=== PATIENT | female | born 1980 ===

== ENCOUNTER 2024-06-12 01:02 | Day surgery (SDC) | payer OTHER, SELFPAY ==
[2024-06-08 15:08] VITALS: BMI 29.9
[2024-06-12 07:36] VITALS: BP 117/69; PULSE 56; RESP 18; TEMP 36.4; O2SAT 100
[2024-06-12 07:40] LABS: BEDSIDEPREGUCG Negative (Negative)
[2024-06-12] MEDS: LACTATED RINGERS 1,000 ML 150 ML IV CONT (07:43)
--- NOTE | 2024-06-12 07:48 | WPDANESEPPF ---
Anes - Initial Pre Proc Eval Procedure: Operation Date: 06/12/24 09:00 Proposed Procedures p Screening Colonoscopy - Issac Moreno DO Date/Time: 06/12/24 07:48 Surgeon: Issac Moreno DO Pre Op Diagnosis: Family history of colon cancer Patient Data Age: 43 Gender: F Height: 1.68 m Weight: 82.9 kg Last Vital Signs Temp 36.4 C L 06/12/24 07:36 Pulse 56 L 06/12/24 07:36 Resp 18 06/12/24 07:36 BP 117/69 06/12/24 07:36 Pulse Ox 100 06/12/24 07:36 O2 Del Method Room Air 06/12/24 07:36 Allergies Allergy/AdvReac Type Severity Reaction Status Date / Time Penicillins Allergy Rash Verified 06/12/24 07:35 Home Medications Medication Instructions Recorded Confirmed Type acetaminophen 325 mg tablet 325 mg PO BID PRN Pain 06/08/24 06/12/24 History albuterol sulfate 90 mcg/actuation 2 puff inhalation QID PRN asthma 06/08/24 06/12/24 History aerosol inhaler naproxen 500 mg tablet 500 mg PO BID PRN Pain 06/08/24 06/12/24 History Laboratory Tests 06/12/24 07:38 POC Urine HCG, Qual Negative (Negative) Patient hx anesthesia problems: none Family hx anesthesia problems: none Results Review: All pre-operative results and documents have been reviewed as part of the pre-operative evaluation. [facility] Past Medical History Medical History (Updated 06/12/24 @ 07:48 by Wilner Russell MD) Anxiety Asthma Obesity Family History Family History (Updated 11/18/23 @ 14:32 by Martha Mccartney) Father Alcoholism Depression Heart disease Cancer Mother Asthma Diabetes mellitus Hypertension Heart disease Cerebrovascular accident Grandparent Cancer Hypertension Heart disease Cerebrovascular accident Social History Social History (Updated 11/18/23 @ 14:39 by Martha Mccartney) Smoking status: Former smoker Alcohol intake: former Substance use: former Substance use type: amphetamines Do You Feel Safe in your Home?: Yes Lack of Transportation: No Lack of Food: Never True Current Housing: I Have Housing Difficulty Paying Gas/Electric Bills: No Difficulty Paying for Meds: No Currently Unemployed: No Education: High School Diploma/GED Difficulty w/ Childcare or Family Care: No Living arrangements: incarcerated Anes - Eval Final PreProcedure Day of Procedure 06/12/24 07:48 Patient weight: obese Heart: regular rate and rhythm Lungs: clear to auscultation Airway: Mallampati scale class II Neurological: alert and oriented Last oral intake: >/= 8 hours ASA classification: III Emergent: no Anesthetic plan: proceed Anesthesia type and monitoring: general GIVS and standard monitoring Results Review: All pre-operative results and documents have been reviewed as part of the pre-operative evaluation. Informed Consent: The patient's anesthetic plan and its attendant risks and benefits were discussed with the patient/family/POA. Questions were solicited and answers provided to the satisfaction of the patient/family/POA.
--- NOTE | 2024-06-12 08:49 | PM.IMHP ---
H&P: HPI History of Present Illness Date/Time: 06/12/24 08:49 Chief Complaint: family history of colon cancer Narrative: this is a 43-year-old woman who presents for colonoscopy. He has never had a colonoscopy before. She has a family history of colon cancer in grandfather. She denies any first-degree family members with history of colon cancer. She denies any hematochezia or melena. Review of Systems Review of Systems: All systems reviewed & are unremarkable except as noted in HPI and below Constitutional: Constitutional: Denies chills, Denies fever(s), Denies headache(s) and Denies weight loss Eyes: Eyes: Denies change in vision ENT: Denies dizziness, Denies headache(s), Denies neck mass and Denies throat swelling Cardiovascular: Cardiovascular: Denies chest pain, Denies lightheadedness and Denies dyspnea Respiratory: Respiratory: Denies cough, Denies dyspnea and Denies wheezing Gastrointestinal: Gastrointestinal: Denies abdominal pain, Denies change in bowel habits, Denies nausea and Denies vomiting Genitourinary: Genitourinary: Denies hematuria and Denies dysuria Musculoskeletal: Musculoskeletal: Reports as per HPI Integumentary/Breasts: Skin/Breast: Reports as per HPI Neurologic: Denies dizziness and Denies headache(s) Allergic/Immunologic: Allergic/Immunologic: Denies throat swelling and Denies wheezing [facility] Past Medical History Medical History (Updated 06/12/24 @ 08:49 by Issac Moreno DO) Anxiety Asthma Obesity Family History Family History (Updated 11/18/23 @ 14:32 by Martha Mccartney) Father Alcoholism Depression Heart disease Cancer Mother Asthma Diabetes mellitus Hypertension Heart disease Cerebrovascular accident Grandparent Cancer Hypertension Heart disease Cerebrovascular accident Social History Social History (Updated 11/18/23 @ 14:39 by Martha Mccartney) Smoking status: Former smoker Alcohol intake: former Substance use: former Substance use type: amphetamines Do You Feel Safe in your Home?: Yes Lack of Transportation: No Lack of Food: Never True Current Housing: I Have Housing Difficulty Paying Gas/Electric Bills: No Difficulty Paying for Meds: No Currently Unemployed: No Education: High School Diploma/GED Difficulty w/ Childcare or Family Care: No Living arrangements: incarcerated Meds Home Medications and Allergies Home Medications Medication Instructions Recorded Confirmed Type acetaminophen 325 mg tablet 325 mg PO BID PRN Pain 06/08/24 06/12/24 History albuterol sulfate 90 mcg/actuation 2 puff inhalation QID PRN asthma 06/08/24 06/12/24 History aerosol inhaler naproxen 500 mg tablet 500 mg PO BID PRN Pain 06/08/24 06/12/24 History Allergies Allergy/AdvReac Type Severity Reaction Status Date / Time Penicillins Allergy Rash Verified 06/12/24 07:35 Vital Signs Vital Signs - 24 hr 06/12/24 07:36 Temperature 97.5 F L Pulse Rate 56 L Respiratory Rate 18 Blood Pressure 117/69 Pulse Oximetry 100 Oxygen Delivery Room Air Exam Const: General: no acute distress and alert Orientation/consciousness: patient oriented x3 HENMT: Head: normocephalic and atraumatic Ears: hearing grossly normal bilaterally Face/Nose/Sinus: Normal nares present Mouth: Yes Normal oral and palatal mucosa present Eyes: Periorbital: periorbital findings normal Sclera: sclerae normal EOM: EOMs intact bilaterally Neck: Neck: normal visual inspection, no lymphadenopathy and trachea midline Chest: Chest palpation & inspection: normal inspection of the chest Resp: Effort & Inspection: normal respiratory effort Auscultation: clear to auscultation bilaterally Cardio: Jugular venous distension: no JVD Rate: regular rate Rhythm: regular rhythm Heart sounds: S1 normal heart sound present and S2 normal heart sound present Peripheral pulses: Peripheral pulses 2+ throughout GI: Inspection: normal to inspection
[2024-06-12 09:25] VITALS: BP 90/55; PULSE 72; RESP 20; O2SAT 100
[2024-06-12 09:35] VITALS: BP 97/65; PULSE 64; RESP 18; O2SAT 100
[2024-06-12 09:45] VITALS: BP 110/70; PULSE 60; RESP 18; O2SAT 100
== END 2024-06-12 09:49 | disposition home or self-care (01) ==
PROVIDERS: Anesthesiology; Visit Provider Surgery
PROC: 0DJD8ZZ Inspection of Lower Intestinal Tract, Via Natural or Artificial Opening Endoscopic (ICD-10-PCS; CPT 45378; principal; 2024-06-12 09:00)
DX: Z12.11 Encounter for screening for malignant neoplasm of colon (principal); D12.4 Benign neoplasm of descending colon; D12.5 Benign neoplasm of sigmoid colon; J45.909 Unspecified asthma, uncomplicated; F41.9 Anxiety disorder, unspecified; E66.9 Obesity, unspecified; Z68.29 Body mass index [BMI] 29.0-29.9, adult; Z79.51 Long term (current) use of inhaled steroids; Z79.1 Long term (current) use of non-steroidal anti-inflammatories (NSAID); Z87.891 Personal history of nicotine dependence; Z80.0 Family history of malignant neoplasm of digestive organs; Z82.49 Family history of ischemic heart disease and other diseases of the circulatory system
CPT/HCPCS: 45380; 45385; 88305; J2003; J2704; J7120